=== PATIENT | male | born 1980 ===

== ENCOUNTER → 2024-02-20 06:05 | Day surgery (SDC) | payer BC, SELFPAY ==
[2024-02-20] VITALS (9 sets, daily range): BP systolic 100–120; BP diastolic 67–80; BMI 23.2
[2024-02-20] MEDS: TYLENOL 1000 MG PO (06:38)
[2024-02-20] MEDS: NORMOSOL-R 1000 IV (06:39)
--- NOTE | 2024-02-20 06:58 | W.SUR.PREOP ---
Pre-Operative Surgical Note
-
I have examined this patient prior to the performance of the scheduled procedure.
The patient's condition is unchanged from the time of the current History and
Physical and the patient is able to undergo the scheduled procedure.
--- NOTE | 2024-02-20 08:43 | W.IMMPOSTOP ---
Addendum entered and electronically signed by Ray Benson MD 02/20/24 08:52:
#[id number]
Original Note:
Surgical Immed Post Op Note
-
Primary Surgeon: Kelley
Assisting Surgeon: Elan Simmons PGY 1
Pre-op Diagnosis: RIH
Post-op Diagnosis: RIH - indirect
Procedure Performed: Lap TEP RIH repair with mesh
Anesthesia Type: GETA + 0.25% Marcaine
Specimen / Cultures: none
Estimated Blood Loss: 6mL
Complications: none immediate
Operative Findings: RIH - indirect, 3d max large mid wt mesh, tacks x 2 to coopers. no peritoneal entry with dissection
[2024-02-20] MEDS: ROXICODONE 5 MG PO (10:36)
== END | disposition home or self-care (01) ==
LOC: SDS 06:05
PROVIDERS: ATTENDING PHYSICIAN Surgery
DX: K40.90 Unilateral inguinal hernia, without obstruction or gangrene, not specified as recurrent (principal)
CPT/HCPCS: 49650; C1781